=== PATIENT | female | born 1960 | race Caucasian/White ===

== ENCOUNTER → 2020-02-21 | Outpatient (CLI) | payer OTHER | LOC: SJCVCIMAG 10:17 | PROVIDERS: ATTEND Nuclear Medicine Nuclear Cardiology | DX: M79.604 Pain in right leg (principal); M79.605 Pain in left leg; M79.89 Other specified soft tissue disorders; Z87.891 Personal history of nicotine dependence ==

== ENCOUNTER → 2020-03-06 | Outpatient (CLI) | payer OTHER ==
[~2020-03-06] VITALS: Ht 162.6 cm; Wt 72.6 kg
[~2020-03-06] MED LIST: MELOXICAM7.5 MG PO; PROAIR HFA8.5 GM INH
[2020-03-06 10:29] VITALS: BP 154/98
[2020-03-06 10:32] LABS: HEMATOCRIT 43.8 % (37.0-47.0); HEMOGLOBIN 14.6 gm/dL (12.0-15.0); MCH 31.2 pg (26.0-34.0); MCHC 33.4 g/dL (28.0-37.0); MCV 93.5 fL (80.0-100.0); RBC 4.68 mil/uL (4.20-5.00); RDW 13.4 % (10.5-14.5); WBC 4.8 thou/uL (4.0-11.0)
[2020-03-06 10:46] LABS: CALCIUM 9.1 mg/dL (8.5-10.1); CREATININE 0.6 mg/dL (0.6-1.0); POTASSIUM 4.5 mmol/L (3.5-5.1)
== END | disposition home or self-care (01) ==
LOC: CATH 10:03
PROVIDERS: ATTEND Nuclear Medicine Nuclear Cardiology
DX: I87.1 Compression of vein (principal); R22.43 Localized swelling, mass and lump, lower limb, bilateral; M19.90 Unspecified osteoarthritis, unspecified site; M79.605 Pain in left leg; M79.604 Pain in right leg; F17.210 Nicotine dependence, cigarettes, uncomplicated; Z98.890 Other specified postprocedural states; Z79.899 Other long term (current) drug therapy

== ENCOUNTER → 2020-04-03 | Outpatient (CLI) | payer OTHER | LOC: HYPER 12:17 | PROVIDERS: ATTEND Emergency Medicine | DX: I89.0 Lymphedema, not elsewhere classified (principal); I73.89 Other specified peripheral vascular diseases; M19.90 Unspecified osteoarthritis, unspecified site; R60.9 Edema, unspecified; M79.89 Other specified soft tissue disorders; G89.29 Other chronic pain; R60.0 Localized edema; Z87.891 Personal history of nicotine dependence ==

== ENCOUNTER → 2020-04-10 | Outpatient (CLI) | payer OTHER | LOC: HYPER 12:41 | PROVIDERS: ATTEND Emergency Medicine | DX: I89.0 Lymphedema, not elsewhere classified (principal); R60.0 Localized edema; G89.29 Other chronic pain; I73.89 Other specified peripheral vascular diseases; M19.90 Unspecified osteoarthritis, unspecified site; M79.89 Other specified soft tissue disorders; Z87.891 Personal history of nicotine dependence ==